=== PATIENT | female | born 1975 | race American Indian/Alaskan Native ===

== ENCOUNTER 2019-04-10 19:01 | Emergency (ER) | payer OTHER ==
[2019-04-10 19:13] VITALS: BP 130/78
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
[2019-04-10] MEDS ORDERED: IBUPROFEN PO ONE (20:48)
[2019-04-10] MEDS ORDERED: NORCO 5/325 PO ONE (20:48)
[2019-04-10] MEDS ORDERED: FLEXERIL PO ONE (20:48)
[2019-04-10] MEDS ORDERED: ZOFRAN ODT PO ONE (20:50)
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
== END 2019-04-10 21:56 | disposition home or self-care (01) ==
LOC: ED 19:01
DX: S86.911A Strain of unspecified muscle(s) and tendon(s) at lower leg level, right leg, initial encounter (principal); S40.811A Abrasion of right upper arm, initial encounter; S80.812A Abrasion, left lower leg, initial encounter; S80.811A Abrasion, right lower leg, initial encounter; Z79.899 Other long term (current) drug therapy; V89.2XXA Person injured in unspecified motor-vehicle accident, traffic, initial encounter; Y93.89 Activity, other specified; Y92.488 Other paved roadways as the place of occurrence of the external cause; Y99.8 Other external cause status
CPT/HCPCS: 99283; Q0162